=== PATIENT | male | born 1990 | race Caucasian/White ===

== ENCOUNTER 2019-07-06 17:10 | Emergency (ER) | payer SELFPAY ==
[2019-07-06] MEDS ORDERED: TETANUS,DIPHTHERIA,PERTUSSIS 1 EA SYG IM ONE (17:28)
[2019-07-06] MEDS ORDERED: LIDOCAINE 1% W/ EPINEPHRINE 20 ML VIAL INJ ONE (17:28)
--- NOTE | 2019-07-06 17:31 | ED.PDOC ---
History of Present Illness - General Chief Complaint: Laceration Time Seen by Provider: 07/06/19 17:20 Source: patient, RN notes reviewed, Vital Signs reviewed, family Exam Limitations: no limitations - History of Present Illness Initial Comments: Pt presents for right foot laceration. States he was walking in the [place] shoes and felt something sharp to right sole of foot. Once he got out, he noticed laceration to bottom of foot. He put pepper on the wound and compression dressing and came to ED for evaluation. Denies other injuries. unknown last tetanus Allergies/Adverse Reactions: Allergies NO KNOWN ALLERGY Allergy (Verified 07/06/19 18:27) Home Medications: Ambulatory Orders Cephalexin Monohydrate [Keflex] 500 mg PO QID 7 Days #28 cap 07/06/19 Review of Systems - Review of Systems Constitutional: Denies: chills, weakness EENTM: States: no symptoms reported Respiratory: States: no symptoms reported Cardiology: Denies: chest pain, syncope Gastrointestinal/Abdominal: Denies: diarrhea, nausea, vomiting Musculoskeletal: Denies: back pain, neck pain Skin: States: see HPI All other Systems: Reviewed and Negative Family Medical History - Family History Father Hx Family Hypertension: Yes Physical Exam - Physical Exam General Appearance: Alert, Comfortable, No apparent distress Neck: non-tender, supple Cardiovascular/Chest: normal peripheral pulses, regular rate, rhythm, no murmur Respiratory: chest non-tender, lungs clear, normal breath sounds, no respiratory distress Gastrointestinal/Abdominal: non tender, soft Extremity: other - There is a 1 cm laceration to mid sole of right foot. No FB seen. No active bleeding. Has 5/5 flexion and extension strength to toes. Cap refill < 2 seconds Progress - Progress Progress: 07/06/19 17:50 Pt states he stepped on something while walking in [place]. Has laceration to sole of foot that has been irrigated and sutured. No sign of FB. Wound care instructions given. Will update tetanus and start prophylactic abx. Crutches for comfort. F/U with pcp in 1-2 days for recheck. suture removal in 10-12 days - Results/Orders Results/Orders: FOOT XRAY IMPRESSION: No acute fracture or dislocation seen. No radiopaque foreign body. Procedures - Laceration/Wound Repair Right Foot Wound Length (cm): 1 - sole of foot Wound's Depth, Shape: linear Wound Explored: clean Irrigated w/ Saline (cc's): 250 Anesthesia: Lidocaine w/ Epi Wound Repaired With: sutures Suture Size/Type: 5:0 Number of Sutures: 2 Layer Closure?: No Departure - Departure Clinical Impression: Laceration of foot Qualifiers: Encounter type: initial encounter Laterality: right Qualified Code(s): S91.311A - Laceration without foreign body, right foot, initial encounter Time of Disposition: 17:53 Disposition: Discharge to Home or Self Care Condition: Good Departure Forms: ED Discharge - Pt. Copy, Patient Portal Self Enrollment Instructions: DI for Laceration Repair Diet: resume usual diet Activity: walking as tolerated Prescriptions: Cephalexin Monohydrate [Keflex] 500 mg PO QID 7 Days #28 cap Home Medications: Ambulatory Orders Cephalexin Monohydrate [Keflex] 500 mg PO QID 7 Days #28 cap 07/06/19 Additional Instructions: Return in 10-12 days for suture removal
[2019-07-06 18:03] VITALS: O2SAT 99
--- NOTE | 2019-07-06 18:28 | RAD ---
EXAM DESCRIPTION: Foot,Right 2 Views CLINICAL HISTORY: 29 years Male puncture wound COMPARISON: None TECHNIQUE: Two images of the right foot were obtained. FINDINGS: No fracture seen. Normal bony mineralization. No erosive or lytic lesions. Possible subcutaneous emphysema medial soft tissues. No radiopaque foreign body. IMPRESSION: No acute fracture or dislocation seen. No radiopaque foreign body. Electronically signed by: Christine Crocker MD 07/06/2019 6:26 PM CDT
[2019-07-06 19:03] VITALS: BP 134/82; TEMP 98.7
== END 2019-07-06 19:03 | disposition home or self-care (01) ==
LOC: ER 17:10
DX: S91.311A Laceration without foreign body, right foot, initial encounter (principal); W26.8XXA Contact with other sharp object(s), not elsewhere classified, initial encounter; Y92.828 Other wilderness area as the place of occurrence of the external cause